=== PATIENT | female | born 1965 | race Caucasian/White ===

== ENCOUNTER → 2020-04-23 | Outpatient (CLI) | payer BC ==
--- NOTE | 2020-04-23 14:01 | RAD ---
MR#: [id number] Date of Study: 04/23/2020 Ordering Physician: CRISTÓBAL ONTIVEROS, Referring Physician: KIEL LACKEY Tech: RT Epi (R) (N) APPROVED REPORT Test Type: Exercise Test Indications: Dyspnea Cardiac History: No known cardiac Resting Heart Rate: 50 bpm Resting Blood Pressure: 123/70mmHg Pretest Chest Pain: None Stress Symptoms Dyspnea POST EXERCISE Reason for Termination: Reached target heart rate Target HR: 140 Max HR: 140 bpm 100% of Maximum Predicted HR: 140 bpm Exercise duration: 7:02 min:sec, 3 Stage Max Blood Pressure: 160/80mmHg Blood Pressure response to exercise: Normal blood pressure response during stress. Heart Rate response to exercise: Normal Chest Pain: No. Arrhythmia: No. ST Change: No. INTERPRETATION Stress EKG Conclusion: No evidence of ischemic EKG changes. Imaging Protocol IMAGE PROTOCOL: Rest Tc-99m/stress Tc-99m 1 day Rest: Stress: Viability: Radiopharm.Tc99m UhbcejetmGx41l Sestamibi Ixlt63hGo 32mCi Duration 15min. 15min. Img Date 04/23/2020 04/23/2020 Inj-Img Fhrk64tea. 50min. Rest Admin Site:IV - Right AntecubitalAdministrator: RT Epi (R)(N) Stress Admin Site: IV - Right AntecubitalAdministrator: RT Epi (R)(N) STRESS DATA End Diast. Vol.73.0mlAv. Heart Rate58.0bpm End Syst. Vol.11.0mlCO Index BSA0.0L/min Myocardial Szqz180.0gEject. Nmpczzxj93.0% Stress Rates Pk. Fill Rate3.02EDV/secLVtime Pk. Fill 177.64msec Pk. Empty Rate4.02ESV/secLVtime Pk. Orcjk638.11msec / Pk. Fill1.77EDV/sec Stress Scores Regional WT0.00Summed WT0.00 Regional WM0.00Summed WM0.00 The rest and stress images show normal perfusion, normal contraction and thickening. LV Perf. Quant 17 Seg. SSS0.00 17 Seg. SRS4.00 17 Seg. SDS0.00 Stress Defect Extent (% LAD)0.00Rest Defect Extent (% LAD)7.50Rev. Defect Extent (% LAD)0.00 Stress Defect Extent (% LCX) 0.00Rest Defect Extent (% LCX)8.80Rev. Defect Extent (% LCX)0.00 Stress Defect Extent (% RCA)0.00Rest Defect Extent (% RCA)0.00Rev. Defect Extent (% RCA)0.00 Stress Defect Extent (% BRAD)0.00Rest Defect Extent (% BRAD)5.40Rev. Defect Extent (% BRAD)0.00 Other Information Quality:Good Risk Assessment: Low Risk Conclusion 1. No evidence of EKG changes with stress testing. 2. Normal perfusion at stress/rest. 3. Low risk study. 4. EF > 60%. Signed by : Cristóbal Ontiveros, Electronically Approved : 04/23/2020 14:01:27
--- NOTE | 2020-04-23 14:03 | CARD ---
MR#: [id number] Date of Study: 04/23/2020 Ordering Physician: CRISTÓBAL ZIMMER, Referring Physician: CRISTÓBAL ZIMMER, Tech: Leticia Stevens APPROVED REPORT EXAM: Two-dimensional and M-mode echocardiogram with Doppler and color Doppler. Other Information Quality : AverageHR: 62bpm INDICATION Dyspnea Murmur 2D DIMENSIONS RVDd3.0 (2.9-3.5cm)Left Atrium(2D)3.7 (1.6-4.0cm) IVSd1.1 (0.7-1.1cm)Aortic Root(2D)2.8 (2.0-3.7cm) LVDd4.7 (3.9-5.9cm)LVOT Diameter1.6 (1.8-2.4cm) PWd0.8 (0.7-1.1cm)LVDs2.5 (2.5-4.0cm) FS (%) 47.2 %SV80.9 ml LVEF(%)78.5 (>50%) Aortic Valve AoV Peak Vinod.174.4cm/sAoV VTI38.4cm AO Peak GR.12.2mmHgLVOT Peak Vinod.146.5cm/s LVOT VTI 28.09cmAO Mean GR.6mmHg CORRINA (VMAX)1.76wg1SSO (VTI)1.49cm2 Mitral Valve MV E Bftpcshp04.9cm/sMV E Peak Gr.2mmHg MV DECEL ACUC720qjIB A Phnfxuos44.9cm/s MV E Mean Gr.1mmHgE/A Ratio1.0 Pulmonary Valve PV Peak Rtjxkmrq89.2cm/sPV Peak Grad.3mmHg Tricuspid Valve TR P. Fgfqxerk510xg/sRAP CYTAANGD5zaJd TR Peak Gr.62naEzJDFE70otUb Pulmonary Vein S1 Kafforjk48.6cm/sD2 Norypojc75.2cm/s LEFT VENTRICLE The left ventricle is normal size. There is borderline to mild concentric left ventricular hypertroph y. The left ventricular systolic function is normal and the ejection fraction is within normal range. The Ejection Fraction is 55-60%. There is normal LV segmental wall motion. The left ventricular heard tolic function and filling is normal for age. RIGHT VENTRICLE The right ventricle is normal size. There is normal right ventricular wall thickness. The right ventr icular systolic function is normal. ATRIA The left atrium size is normal. The right atrium size is normal. The interatrial septum is intact wit h no evidence for an atrial septal defect or patent foramen ovale as noted on 2-D or Doppler imaging. AORTIC VALVE The aortic valve is thickened but opens well. Doppler and Color Flow revealed no significant aortic r egurgitation. There is no significant aortic valvular stenosis. Calculated aortic valve area is 1.7 c m2 with maximum pressure gradient of 12 mmHg and mean pressure gradient of 6 mmHg. MITRAL VALVE The mitral valve is normal in structure and function. There is no evidence of mitral valve prolapse. There is no mitral valve stenosis. Doppler and Color-flow revealed trace mitral regurgitation. TRICUSPID VALVE The tricuspid valve is normal in structure and function. Doppler and Color Flow revealed trace tricus pid regurgitation with an estimated PAP of 27 mmHg. There is no tricuspid valve stenosis. PULMONIC VALVE Doppler and Color Flow revealed trace pulmonic valvular regurgitation. There is no pulmonic valvular stenosis. GREAT VESSELS The aortic root is normal in size. The ascending aorta is Mildly dilated at 3.6 cm The IVC is normal in size and collapses >50% with inspiration. PERICARDIAL EFFUSION There is no evidence of significant pericardial effusion. Critical Notification Critical Value: No <Conclusion> The left ventricular systolic function is normal and the ejection fraction is within normal range. Th e Ejection Fraction is 55-60%. There is normal LV segmental wall motion. The ascending aorta is Mildly dilated at 3.6 cm Signed by : Cristóbal Zimmer, Electronically Approved : 04/23/2020 14:03:30
== END ==
LOC: NM 07:54
PROVIDERS: ATTEND Internal Medicine Cardiovascular Disease
DX: I51.7 Cardiomegaly (principal); R01.1 Cardiac murmur, unspecified; R06.00 Dyspnea, unspecified
CPT/HCPCS: 78452; 93017; 93306; A9500; 96376

== ENCOUNTER → 2021-11-25 | Outpatient (CLI) | payer BC ==
--- NOTE | 2021-11-25 12:00 | CARD ---
MR#: [id number] Date of Study: 11/25/2021 Ordering Physician: CRISTÓBAL ONTIVEROS, Referring Physician: CRISTÓBAL ONTIVEROS, Tech: Lenny Albright [facility] APPROVED REPORT EXAM: Two-dimensional and M-mode echocardiogram with Doppler and color Doppler. Other Information Quality : AverageHR: 48bpm Rhythm : Bradycardia INDICATION Ascending aortic dilatation. 2D DIMENSIONS Left Atrium(2D)3.9 (1.6-4.0cm)IVSd1.2 (0.7-1.1cm) Aortic Root(2D)3.1 (2.0-3.7cm)LVDd4.4 (3.9-5.9cm) LVOT Diameter1.7 (1.8-2.4cm)PWd1.2 (0.7-1.1cm) LA Bswtdf59 (18-58mL)LVDs2.9 (2.5-4.0cm) FS (%) 34.4 %SV54.9 ml Aortic Valve AoV Peak Vinod.165.7cm/sAoV VTI37.7cm AO Peak GR.11.0mmHgLVOT Peak Vinod.159.5cm/s LVOT VTI 35.63cmAO Mean GR.6mmHg CORRINA (VMAX)2.13ds0AZT (VTI)2.16cm2 Mitral Valve MV E Qryxqdvw907.9cm/sMV DECEL CBRH307kd MV A Onkhrnwl65.1cm/sE/A Ratio1.2 Pulmonary Valve PV Peak Kqqjwezj856.2cm/sPV Peak Grad.5mmHg Tricuspid Valve TR P. Ywuifqod518on/sTR Peak Gr.21mmHg Pulmonary Vein S1 Fcdfffkw46.5cm/sD2 Wpmgnirm18.4cm/s LEFT VENTRICLE The left ventricle is normal size. There is borderline to mild concentric left ventricular hypertroph y. The left ventricular systolic function is normal. LV ejection fraction of 55 to 60%. There is norm al LV segmental wall motion. The left ventricular diastolic function and filling is normal for age. N o left ventricle thrombus noted on this study. There is no ventricular septal defect visualized. Ther e is no left ventricular aneurysm. There is no mass noted in the left ventricle. RIGHT VENTRICLE The right ventricle is normal size. There is normal right ventricular wall thickness. The right ventr icular systolic function is normal. ATRIA The left atrium is borderline dilated. The right atrium size is normal. The interatrial septum is int act with no evidence for an atrial septal defect or patent foramen ovale as noted on 2-D or Doppler i maging. AORTIC VALVE The aortic valve is mildly sclerotic. Doppler and Color Flow revealed no significant aortic regurgita tion. There is no significant aortic valvular stenosis. There is no aortic valvular vegetation. MITRAL VALVE The mitral valve is normal in structure and function. There is no evidence of mitral valve prolapse. There is no mitral valve stenosis. Doppler and Color-flow revealed trace mitral regurgitation. TRICUSPID VALVE The tricuspid valve is normal in structure and function. Doppler and Color Flow revealed no tricuspid valve regurgitation noted. There is no tricuspid valve prolapse or vegetation. There is no tricuspid valve stenosis. PULMONIC VALVE The pulmonary valve is normal in structure and function. Doppler and Color Flow revealed no pulmonic valvular regurgitation. There is no pulmonic valvular stenosis. GREAT VESSELS The aortic root is normal in size. The ascending aorta is borderline dilated at (3.8cm). The pulmonar y artery is normal. The IVC is normal in size and collapses >50% with inspiration. PERICARDIAL EFFUSION There is no pleural effusion. There is no evidence of significant pericardial effusion. Critical Notification Critical Value: No <Conclusion> The left ventricle is normal size. The left ventricular systolic function is normal. LV ejection fraction of 55 to 60%. There is borderline to mild concentric left ventricular hypertrophy. Doppler and Color Flow revealed no significant aortic regurgitation. There is no significant aortic valvular stenosis. Doppler and Color-flow revealed trace mitral regurgitation. Doppler and Color Flow revealed no tricuspid valve regurgitation noted. The aortic root is normal in size. The ascending aorta is borderline dilated at (3.8cm). Signed by : Hardy Mina MD Electronically Approved : 11/25/2021 12:00:31
== END ==
LOC: ECHO 08:39
PROVIDERS: ATTEND Internal Medicine Cardiovascular Disease
DX: I35.8 Other nonrheumatic aortic valve disorders (principal); I71.2 Thoracic aortic aneurysm, without rupture; I51.7 Cardiomegaly
CPT/HCPCS: 93306